=== PATIENT | male | born 1955 | race African-American/Black ===

== ENCOUNTER 2017-11-02 07:32 | Emergency (ER) | payer OTHER ==
[2017-11-02] MEDS ORDERED: SODIUM CHLORIDE 1,000 ML IV STA (07:40)
[2017-11-02] MEDS ORDERED: METOCLOPRAMIDE HCL INJECTION 10 MG/2 ML VIAL IVPB ONE (07:41)
[2017-11-02 07:49] VITALS: TEMP 98.6; BMI 32.5
[2017-11-02] MEDS ORDERED: HEMOQUE TEST 1 EACH EACH ONE (07:52)
--- NOTE | 2017-11-02 08:17 | PDOC ---
History of Present Illness - General Chief Complaint: Headache Stated Complaint: HEADACHE Time Seen by Provider: 11/02/17 07:39 - History of Present Illness Initial Comments: 11/02/17 08:13 Chief complaint: Headache History of present illness: This is a 62-year-old gentleman past medical history significant for hypertension, diabetes presents to the emergency Department with a gradual onset headache started at approximately 5:30 this morning. Headache woke patient up from sleep right sided throbbing persistent constant no exacerbating or alleviating factors non-radiating gradually worsened over the next 2 hours. Is currently an 8 out of 10. No associated photophobia no associated neck pain or stiffness no associated fever rash. Patient endorses nausea but no vomiting. Patient was driving as headache worsened then decided to come to the emergency department. No travel no sick contacts does have a history of previous headaches but not regularly Past History - Travel Traveled outside of the country in the last 30 days: No Close contact w/someone who was outside of country & ill: No - Past Medical History Allergies/Adverse Reactions: Allergies Allergy/AdvReac Type Severity Reaction Status Date / Time No Known Allergies Allergy Verified 11/02/17 07:33 Home Medications: Ambulatory Orders Unobtainable [Unobtainable] 11/02/17 COPD: No Diabetes: Yes HTN: Yes - Surgical History Other Surgical History: 11/02/17 08:25 inguinal abscess I&D - Family Disease History Comment:: 11/02/17 08:26 Family hx of DM - Suicide/Smoking/Psychosocial Hx Smoking History: Never smoked Have you smoked in the past 12 months: No Hx Alcohol Use: No Drug/Substance Use Hx: No Substance Use Type: None Review of Systems - Review of Systems Comments:: 11/02/17 08:15 ROS: A complete review of 10 out of 10 review of systems is taken and is negative apart from what is previously mentioned below and in the HPI. *Physical Exam - Vital Signs Last Vital Signs Temp Pulse Resp BP Pulse Ox 98.6 F 98 H 18 109/106 100 11/02/17 07:33 11/02/17 07:33 11/02/17 07:33 11/02/17 07:33 11/02/17 07:33 - Physical Exam Comments: 11/02/17 08:15 Vitals: Triage Vital signs reviewed General Appearance: no acute distress, well nourished well developed, Head: Atraumatic, Eyes: Pupils equal reactive round, extraocular movement intact Throat: Posterior oropharynx without erythema, mucous membranes moist, Neck: Supple;No Nucal rigidity, Chest Wall: Nontender Cardiac: Regular rate and rhythym, no murmurs, no rubs, no gallops, Lungs: Clear to auscultation bilateral, good air movement bilaterally, Abdomen: Soft, non distended, normal bowel sounds, non tender to palpation Extremities: Full range of motion to all extremities, no cyanosis, clubbing, or edema Skin: Warm and dry, no rashes or lesions, no rash, no petechiae Neuro: AOX3; Cranial Nerves 2-12 grossly intact, Strength intact to all extremities, Sensation intact to all extremities,gait normal Psych: normal mood, normal affect ED Treatment Course - LABORATORY CBC & Chemistry Diagram: 11/02/17 07:40 11/02/17 07:49 - RADIOLOGY Radiology Studies Ordered: Category Date Time Status HEAD CT WITHOUT CONTRAST [CT] Stat CT Scan 11/02/17 07:40 Taken - Medications Given in the ED: ED Medications Discontinued Medications Generic Name Dose Route Start Last Admin Trade Name Freq PRN Reason Stop Dose Admin Diphenhydramine HCl 25 mg 11/02/17 07:40 11/02/17 08:07 Benadryl Injection - IVPUSH 11/02/17 07:41 25 mg ONCE ONE Administration Metoclopramide HCl 10 mg 11/02/17 07:41 11/02/17 08:07 Reglan Injection - IVPB 11/02/17 07:42 10 mg ONCE ONE Administration Medical Decision Making - Medical Decision Making 11/02/17 08:16 62 years old past medical history significant for hypertension diabetes presents to the ED with severe headache starting at 5:30 this morning. No meningeal signs. No neck stiffness. Given no significant headache history differential diagnosis includes subarachnoid hemorrhage headache, tension headache, secondary headache. We will order stat head CT, place IV IV fluids Reglan and Benadryl labs and reassess Reevaluation head CT interpreted by me no subarachnoid blood noted 11/02/17 09:39 Reevaluation patient feels much better headache completely resolved. Most likely secondary headache such as tension headache CT with no acute findings suggestive of intracranial hemorrhage or subarachnoid hemorrhage. No indication for LP at this time is CAT scan performed within 6 hours of onset of headache We'll recommend NSAIDs 2 days close PCP follow-up Findings, the need for follow-up and strict return instructions discussed with patient. *DC/Admit/Observation/Transfer Diagnosis at time of Disposition: Headache Qualifiers: Headache type: unspecified Headache chronicity pattern: acute headache Intractability: not intractable Qualified Code(s): R51 - Headache - Discharge Dispostion Admit: No - Referrals Referrals: Bret Lopez MD [Staff Physician] - - Patient Instructions Printed Discharge Instructions: DI for Headache Additional Instructions: Take all home medications as prescribed. Drink plenty of fluids. Over-the- counter Motrin as directed on package for 2 days as needed for headache. Follow- up with your primary care provider within 2-3 days. Return to the emergency department immediately for any severe headache, severe headache that his sudden in onset any severe headache that is associated with fever or for any concerns. - Post Discharge Activity
[2017-11-02 08:29] LABS: INR 0.95 (0.82-1.09); PROTHROMBIN TIME (PATIENT) 10.6 SEC (10.2-13.0)
[2017-11-02 08:38] LABS: ANION GAP 9 (8-16); BLOOD UREA NITROGEN 11 mg/dl (7-18); CALCIUM 9.4 mg/dl (8.4-10.2); CHLORIDE 103 mmol/L (98-107); CO2 25 mmol/L (22-28); CREATININE 0.8 mg/dl (0.6-1.3); GLUCOSE,RANDOM 185 mg/dl (74-106); POTASSIUM 3.8 mmol/L (3.5-5.1); SODIUM 137 mmol/L (136-145)
[2017-11-02 08:44] LABS: BASO % 0.8 % (0-2.0); EOS % 0.7 % (0-4.5); HEMATOCRIT 41.9 % (35.4-49); HEMOGLOBIN 13.7 GM/dl (11.7-16.9); LYMPH % 29.2 % (8-40); MCH 29.8 pg (25.7-33.7); MCHC 32.6 g/dl (32.0-35.9); MEAN CELL VOLUME 91.5 fl (80-96); MEAN PLT VOLUME 8.2 fl (7.5-11.1); MONO % 6.4 % (3.8-10.2); NEUT % 62.9 % (42.8-82.8); PLATELET COUNT 410 K/MM3 (134-434); RBC 4.58 M/mm3 (4.00-5.60); RDW 13.2 % (11.9-15.9); WHITE BLOOD COUNT 5.3 K/mm3 (4.0-10.8)
[2017-11-02 09:35] VITALS: BP 132/81; PULSE 70
== END 2017-11-02 09:53 | disposition home or self-care (01) ==
LOC: FER 07:32
PROC: 3E033GC Introduction of Other Therapeutic Substance into Peripheral Vein, Percutaneous Approach (ICD-10-PCS; principal; 2017-11-02)
PROC: 3E0337Z Introduction of Electrolytic and Water Balance Substance into Peripheral Vein, Percutaneous Approach (ICD-10-PCS; 2017-11-02)
DX: R51 Headache (principal); I10 Essential (primary) hypertension; E11.9 Type 2 diabetes mellitus without complications
CPT/HCPCS: 36415; 70450-TC; 80048; 82962; 85025; 85610; 85730; 99282-25